=== PATIENT | male | born 1950 | race Two or more races ===

== ENCOUNTER 2018-01-13 16:05 | Emergency (ER) | payer MEDICARE, OTHER ==
[~2018-01-13] VITALS: Ht 170.2 cm; Wt 70.8 kg
--- NOTE | 2018-01-13 16:20 | NUR ---
BIBRA C/O ABRASIONS TO BLE S/P TRIP AND FALL . PATIENT IS AWAKE AND ALERT, NOT IN DISTRESS. VSS
[2018-01-13 17:28] VITALS: BP 124/80
== END 2018-01-13 17:34 | disposition home or self-care (01) ==
LOC: ER 16:07
DX: S80.01XA Contusion of right knee, initial encounter (principal); S80.811A Abrasion, right lower leg, initial encounter; M25.461 Effusion, right knee; W18.30XA Fall on same level, unspecified, initial encounter; Y93.89 Activity, other specified; Y92.513 Shop (commercial) as the place of occurrence of the external cause; Y99.8 Other external cause status
CPT/HCPCS: 73564; 73610; 99284; A4606; Z7610